=== PATIENT | female | born 1970 | race African-American/Black ===

== ENCOUNTER 2024-02-22 21:19 | Emergency (ER) | payer OTHER ==
[~2024-02-22] VITALS: Ht 170.2 cm; Wt 88.0 kg
[2024-02-22 21:24] VITALS: BP 163/91; PULSE 66; RESP 16; TEMP 98.3; O2SAT 98
[2024-02-22] MEDS: KETOROLAC 30 MG/ML VIAL IM ONE (21:52)
[2024-02-22] MEDS: ALUMINUM HYD/MAG/SIMETHICONE 30 ML UDC PO ONE (21:52)
[2024-02-22] MEDS: FAMOTIDINE 20 MG TAB PO ONE (21:53)
[2024-02-22 22:05] VITALS: BP 161/98; PULSE 89; RESP 18; O2SAT 99
[2024-02-22 22:29] LABS: APPEARANCE,URINE CLEAR (CLEAR); BILIRUBIN,URINE NEGATIVE (NEGATIVE); BLOOD, URINE 1+ (NEGATIVE); COLOR,URINE YELLOW (YELLOW); LEUKOCYTE ESTERASE ,URINE TRACE (NEGATIVE); NITRITE, URINE NEGATIVE (NEGATIVE); PROTEIN,URINE NEGATIVE (NEGATIVE); UGLUCOSE NEGATIVE (NEGATIVE); UROBILINOGEN,URINE 0.2 EU/dL (0.2 - 1)
[2024-02-22 22:42] LABS: BACTERIA,URINE 10-30 (MOD) /HPF (None Seen); MUCUS,URINE 1+ /LPF (None Seen); SQUAMOUS EPITHELIAL CELL,UR 4-10 (MOD) /LPF (0-3 (FEW))
[2024-02-22 22:44] LABS: BASOPHILS % (AUTO) 0.7 % (0.0-2.0); EOSINOPHILS # (AUTO) 0.1 K/uL (0-0.4); EOSINOPHILS % (AUTO) 2.5 % (0.0-4.0); HEMATOCRIT 38.1 % (36-48); HEMOGLOBIN 13.2 g/dL (12.0-16.0); LYMPHOCYTES # (AUTO) 2.5 K/uL (2.5-16.5); LYMPHOCYTES % (AUTO) 59.9 % (20.5-51.1); MEAN CORPUSCULAR HEMOGLOBIN 33 pg (27-31); MEAN CORPUSCULAR HGB CONC 35 g/dL (33-37); MEAN CORPUSCULAR VOLUME 96.1 fL (80-94); MONOCYTES # (AUTO) 0.3 K/uL (0.8-1.0); MONOCYTES % (AUTO) 6.8 % (1.7-9.3); NEUTROPHILS # (AUTO) 1.3 K/uL (1.8-7.7); NEUTROPHILS % (AUTO) 30.1 % (42.2-75.2); PLATELET COUNT (AUTO) 162 K/uL (140-450); RED BLOOD CELL COUNT(AUTO) 3.97 MIL/uL (4.20-5.40); RED CELL DISTRIBUTION WIDTH 13.8 % (11.6-13.7); WHITE BLOOD COUNT (AUTO) 4.2 K/uL (4.8-10.8)
[2024-02-22 23:09] LABS: ANION GAP 7.8 (8-16); CARBON DIOXIDE 29.4 mmol/L (21-32); CREATININE 0.9 mg/dL (0.6-1.3); POTASSIUM 3.2 mmol/L (3.5-5.1)
[2024-02-22 23:11] LABS: ALBUMIN 3.8 g/dL (3.4-5.0); BILIRUBIN,DIRECT 0.1 mg/dL (0.0-0.3); TOTAL BILIRUBIN 0.8 mg/dL (0.0-1.0); TOTAL PROTEIN, SERUM 7.4 g/dL (6.4-8.2)
[2024-02-23] MEDS ORDERED: MAG10ORA PO (00:06)
[2024-02-23] MEDS ORDERED: CEPH-588 PO (00:06)
[2024-02-23] MEDS ORDERED: BEN10 PO (00:06)
== END 2024-02-23 00:25 | disposition home or self-care (01) ==
LOC: MED 21:19
DX: N39.0 Urinary tract infection, site not specified (principal); I25.2 Old myocardial infarction; Z90.49 Acquired absence of other specified parts of digestive tract; Z98.890 Other specified postprocedural states; Z79.899 Other long term (current) drug therapy
CPT/HCPCS: 36415; 74018; 80048; 80076; 81001; 83690; 85025; 87086; 96372; 99284; J1885

== ENCOUNTER 2024-03-20 20:14 | Emergency (ER) | payer MEDICARE, MEDICAID ==
[~2024-03-20] VITALS: Ht 170.2 cm; Wt 88.0 kg
[~2024-03-20 20:14] MED LIST: BEN10 PO; CEPH-588 PO; MAG10ORA PO
[2024-03-20 20:15] VITALS: BP 156/109; PULSE 87; RESP 17; TEMP 98.4; O2SAT 97
[2024-03-20] MEDS: CYCLOBENZAPRINE 10 MG TAB PO ONE (21:31)
[2024-03-20] MEDS: KETOROLAC 30 MG/ML VIAL IM ONE (21:31)
[2024-03-20] MEDS ORDERED: DICL100G32 TP (22:04)
[2024-03-20] MEDS ORDERED: CYCL-711 PO (22:04)
[2024-03-20] MEDS ORDERED: NAPR-337 PO (22:04)
== END 2024-03-20 22:20 | disposition home or self-care (01) ==
LOC: MED 20:14
DX: S39.012A Strain of muscle, fascia and tendon of lower back, initial encounter (principal); I25.2 Old myocardial infarction; E11.9 Type 2 diabetes mellitus without complications; Z79.899 Other long term (current) drug therapy; X58.XXXA Exposure to other specified factors, initial encounter; Y92.89 Other specified places as the place of occurrence of the external cause; Y93.89 Activity, other specified; Y99.8 Other external cause status
CPT/HCPCS: 72110; 72170; 96372; 99284; J1885